=== PATIENT | female | born 1975 | race Caucasian/White ===

== ENCOUNTER → 2017-10-10 | Outpatient (CLI) | payer OTHER ==
[2017-10-10 14:30] LABS: CHOLESTEROL 140 mg/dL (<200); HDL CHOLESTEROL 35 mg/dl (40-60); LDL CHOLESTEROL 82 mg/dL (9-159); TRIGLYCERIDES 117 mg/dl (<150); VLDL CHOLESTEROL 23 mg/dL (6-40)
== END | disposition home or self-care (01) ==
LOC: LAB 13:07
DX: E78.5 Hyperlipidemia, unspecified (principal)

== ENCOUNTER 2018-01-28 20:22 | Emergency (ER) | payer OTHER ==
[~2018-01-28] VITALS: Ht 170.1 cm; Wt 117.9 kg
== END 2018-01-28 22:19 | disposition home or self-care (01) ==
LOC: ED 20:22
DX: M79.642 Pain in left hand (principal); Z88.6 Allergy status to analgesic agent; Z88.8 Allergy status to other drugs, medicaments and biological substances

== ENCOUNTER 2018-02-06 13:07 | Emergency (ER) | payer OTHER ==
[~2018-02-06] VITALS: Ht 165.1 cm; Wt 114.8 kg
[2018-02-06 13:50] LABS: BASO % 0.3 % (0.0-1.0); EOS # 0.1 10*3/uL (0.0-0.4); EOS % 0.8 % (1.0-4.0); HEMATOCRIT 29.5 % (37.0-47.0); HEMOGLOBIN 9.3 g/dl (12.0-16.0); LYMPH # 1.4 10*3/uL (1.3-4.4); LYMPH % 8.5 % (27.0-41.0); MEAN CELL VOLUME 82.9 fl (81.0-99.0); MEAN CORPUSCULAR HGB 26.1 pg (27.0-31.0); MEAN CORPUSCULAR HGB CONC 31.5 g/dl (33.0-37.0); MEAN PLATELET VOLUME 10.6 fl (9.6-12.3); MONO # 0.7 10*3/uL (0.1-1.0); MONO % 4.2 % (3.0-9.0); NEUT # 13.6 10*3/uL (2.3-7.9); NEUT % 85.6 % (47.0-73.0); PLATELET COUNT AUTOMATED 355 10*3/uL (130-400); RED BLOOD COUNT 3.56 10*6/uL (4.10-5.10); WHITE BLOOD COUNT 15.9 10*3/uL (4.8-10.8)
[2018-02-06 14:06] LABS: ALBUMIN 2.7 gm/dl (3.1-4.5); CREATININE 2.24 mg/dL (0.55-1.02); POTASSIUM 4.5 mmol/L (3.5-5.1); TOTAL PROTEIN 8.1 gm/dL (6.4-8.2)
[2018-02-06 14:49] LABS: BILIRUBIN NEGATIVE (NEGATIVE); BLOOD 3+ (NEGATIVE); CLARITY TURBID (CLEAR); COLOR YELLOW (YELLOW); GLUCOSE 3+ (NEGATIVE); KETONE NEGATIVE (NEGATIVE); LEUKO ESTERASE 2+ (NEGATIVE); NITRITE NEGATIVE (NEGATIVE); SPECIFIC GRAVITY <= 1.005 (1.005-1.030); UROBILINOGEN 0.2 E.U./dl (0.2-1.0)
[2018-02-06 14:57] LABS: WBC TNTC wbc/hpf (0-5)
[2018-02-06 17:43] LABS: CREATININE 1.87 mg/dL (0.55-1.02); POTASSIUM 3.8 mmol/L (3.5-5.1)
== END 2018-02-06 22:19 | disposition short-term general hospital (02) ==
LOC: ED 13:07
PROVIDERS: Emergency Medicine; Nurse Practitioner Family
DX: A41.9 Sepsis, unspecified organism (principal); R65.20 Severe sepsis without septic shock; E11.65 Type 2 diabetes mellitus with hyperglycemia; N39.0 Urinary tract infection, site not specified; N99.522 Malfunction of incontinent external stoma of urinary tract; Z88.8 Allergy status to other drugs, medicaments and biological substances

== ENCOUNTER 2018-02-16 19:54 | Inpatient (IN) | payer OTHER ==
[~2018-02-16] VITALS: Ht 165.1 cm; Wt 123.0 kg
--- NOTE | ~2018-02-16 | EKG ---
[place], [place] ELECTROCARDIOGRAM REPORT NAME: RONN MCKINNEY UNIT #: [id number] ROOM: 505 DOCTOR: BHUMIKA DRAFT REPORT BIRTHDATE: [birth year] [facility] Test Date: 2018-02-16 Test Time: 19:57:47 Pat Name: RONN MCKINNEY Department: Room: 505 Gender: F Director Surface Transportation: Thad Burnett : 1975 Requested By: NOLAN CHAPMAN Order Number: [id number] Reading MD: Dali Marsh MD Measurements Intervals [place] Rate: 104 P: 49 NC: 144 QRS: 5 QRSD: 93 T: 57 QT: 358 QTc: 471 Interpretive Statements Sinus tachycardia Lateral infarct, recent Probable anteriorl infarct, recent Electronically Signed On 02-20-2018 14:22:37 PST by Dali Marsh MD CM:EKGRPT:ELECTROCARDIOGRAM REPORT [id number] 1422 NOLAN GA DRAFT REPORT NOLAN CHAPMAN DO
--- NOTE | ~2018-02-16 | EKG ---
[place], [place] ELECTROCARDIOGRAM REPORT NAME: RONN MCKINNEY UNIT #: [id number] ROOM: 505 DOCTOR: BHUMIKA DRAFT REPORT BIRTHDATE: [birth year] [facility] Test Date: 2018-02-16 Test Time: 22:50:49 Pat Name: RONN MCKINNEY Department: Room: 505 Gender: F Heel Stiffener: Thad Burnett : 1975 Requested By: NOLAN CHAPMAN Order Number: [id number] Reading MD: Dali Marsh MD Measurements Intervals [place] Rate: 99 P: 29 ME: 148 QRS: -15 QRSD: 91 T: 37 QT: 364 QTc: 468 Interpretive Statements Sinus rhythm Borderline left axis deviation Anterolateral infarct, old Electronically Signed On 02-20-2018 14:24:02 PST by Dali Marsh MD CM:EKGRPT:ELECTROCARDIOGRAM REPORT [id number] 1424 NOLAN GA DRAFT REPORT NOLAN CHAPMAN DO
--- NOTE | ~2018-02-16 | CON ---
[place], [place] REPORT OF CONSULTATION NAME: RONN MCKINNEY UNIT #: [id number] ROOM: 505 DOCTOR: MERYL JAQUEZ MD BIRTHDATE: [birth year] DOS: 02/17/2018 REASON FOR CONSULTATION: Chest pain. HISTORY OF PRESENT ILLNESS: The patient is a 42-year-old woman with a history of type 2 diabetes mellitus on insulin, hyperlipidemia, and morbid obesity. She states that she did have a history of a myocardial infarction approximately 2 years ago. She was living in [place] at that time and was transferred to the [facility] in [place] where she did undergo catheterization and placement of a single stent. Those records are not yet available for review. She states that she has been doing well from a cardiac standpoint since then, but does have a large kidney stone. She was hospitalized for removal of the kidney stone at the [facility], but as they were prepping her she did decompensate. She was found to have bilateral lower extremity DVT per her report and was placed on apixaban. She does have a large obstructing kidney stone and therefore, she did undergo placement of a nephrostomy tube as a temporizing measure until she can undergo removal of the kidney stone. Her DVT was documented in early November 2017. The patient states that she has been absolutely faithful with her anticoagulation therapy. Four days ago, she began having intermittent precordial pains. These come and go without provocation. They last 5-10 minutes before they resolve. They are sharp. Occasionally, they get worse with a deep breath. These feel different from her myocardial infarction pain. She denies any diaphoresis, dyspnea, nausea, vomiting, diarrhea or bleeding. Since she has been in the hospital, her electrocardiograms have shown no acute changes and cardiac biomarkers have been negative. PAST MEDICAL HISTORY: Includes: 1. Type 2 diabetes mellitus, on insulin. 2. Morbid obesity. 3. Acute myocardial infarction 2015. Records pending. The patient reports catheterization and placement of a single stent. 4. Hyperlipidemia. 5. Presence of an obstructing kidney stone. Plans were made to remove the stone in November at the [facility], but were delayed because of DVT. 6. Lower extremity DVT diagnosed November 2017. The patient on apixaban. Records pending. MEDICATIONS: Prior to admission; apixaban 5 mg b.i.d., aspirin 81 mg daily, atorvastatin 40 mg daily, Wellbutrin 300 mg daily, cold medication b.i.d., docusate 100 mg b.i.d., hydroxyzine 50 mg t.i.d., Prevacid 30 mg daily, mirtazapine 45 mg daily, tramadol 50 mg q. 6 hours p.r.n. and Lantus insulin 44 units b.i.d. ALLERGIES: She lists allergies to VENLAFAXINE, IBUPROFEN, and METFORMIN. REVIEW OF SYSTEMS: The patient denies diplopia or loss of vision. She denies syncope. She denies fevers, chills, sweats or recent weight change, although she did have some chilling in the last few days. She denies nausea or vomiting. [place], [place] REPORT OF CONSULTATION NAME: RONN MCKINNEY UNIT #: [id number] ROOM: [facility] DOCTOR: MERYL JAQUEZ MD BIRTHDATE: [birth year] She has had the chest pains described above. She denies focal weakness. She denies change in bowel or bladder habits. She denies blood in her stools or urine. She does complain of swelling in her hands and feet. The remainder of the review of systems is negative except as noted above. FAMILY HISTORY: Negative for early coronary artery disease. SOCIAL HISTORY: The patient has a fiance. She does not smoke or consume alcohol, but her fiance does smoke. She rarely consumes marijuana and has not done so in several months. She denies any other illegal drugs. PHYSICAL EXAMINATION: GENERAL: The patient is an obese white female, who is awake, alert and oriented. She does not appear uncomfortable at this time. VITAL SIGNS: Pulse is 86 and regular, blood pressure is 118/58. She weighs 123 kg and has a body mass index of 45.1. HEENT: Normocephalic and atraumatic. Extraocular muscles are intact. Sclerae are clear. Pupils equal, round and react to light. The oral mucosa is moist. Tongue is midline. NECK: Supple. She has no jugular distention or hepatojugular reflux. Carotids are full. There are no bruits. She has no neck or supraclavicular masses and no thyromegaly. LUNGS: Respirations are unlabored. Her chest is clear to auscultation and percussion. She has no presacral edema or chest wall tenderness. CARDIOVASCULAR: Her heart has a regular rhythm. She has a soft S4 gallop, but no S3 or murmur. The PMI is not displaced. There is no precordial heave, lift or thrill. ABDOMEN: Obese, but otherwise benign, without masses or organomegaly, bruits or tenderness. EXTREMITIES: Showed no edema. Her hands do appear to be "puffy," but there is no pitting. LABORATORY DATA: I reviewed her electrocardiogram. It shows sinus rhythm with poor precordial R-wave progression consistent with a previous anterior wall myocardial infarction. No acute ST or T-wave changes are seen. Chest x-ray shows a normal cardiac silhouette without any evidence for failure or infiltrates. Hemoglobin is 8.7, white count 13,600, platelet count 370,000. Sodium 137, potassium 3.5, chloride 105, CO2 28, BUN 20, creatinine 0.97. Hemoglobin A1c 12. Serial troponins have been normal. Total cholesterol 116, triglyceride 196, LDL 41, HDL 36. TSH 2.6. IMPRESSIONS: 1. Atypical chest pain. Thus far, the patient shows no objective evidence to suggest an acute coronary syndrome. 2. History of myocardial infarction, catheterization and stent at the [facility] in [place] around 2016. Records pending. 3. Type 2 diabetes mellitus, on insulin. 4. Morbid obesity. 5. Hyperlipidemia. 6. Kidney stone. [place], [place] REPORT OF CONSULTATION [id number] UN[facility] #: [id number] ROOM: [facility] DOCTOR: MERYL JAQUEZ MD BIRTHDATE: [birth year] 7. Nephrostomy tube in place. 8. History of bilateral deep venous thrombosis diagnosed at the [facility]. The patient is on apixaban. PLAN: We will evaluate the patient further with an echocardiogram and pharmacologic stress test. Further recommendations will depend upon that and review of her records when available. I thank the hospitalist physicians for asking our advice regarding the patient's care. MERYL JAQUEZ MD CM:CONSTR:REPORT OF CONSULTATION 0926 02/17/18 1031 interface
--- NOTE | ~2018-02-16 | EKG ---
[place], [place] ELECTROCARDIOGRAM REPORT NAME: RONN MCKINNEY UNIT #: [id number] ROOM: 505 DOCTOR: BHUMIKA DRAFT REPORT BIRTHDATE: [birth year] [facility] Test Date: 2018-02-17 Test Time: 01:55:28 Pat Name: RONN MCKINNEY Department: Room: 505 Gender: F Headrig Sawyer: Thad Burnett : 1975 Requested By: NOLAN CHAPMAN Order Number: [id number] Reading MD: Dali Marsh MD Measurements Intervals [place] Rate: 93 P: 27 NV: 146 QRS: -15 QRSD: 95 T: 55 QT: 373 QTc: 464 Interpretive Statements Sinus rhythm Borderline left axis deviation Anteroseptal infarct, age indeterminate Lateral leads are also involved Baseline wander in lead(s) V4 Electronically Signed On 02-20-2018 14:24:08 PST by Dali Marsh MD CM:EKGRPT:ELECTROCARDIOGRAM REPORT [id number] 1424 NOLAN GA DRAFT REPORT NOLAN CHAPMAN DO
--- NOTE | ~2018-02-16 | PR ---
[place], [place] PROGRESS NOTE [id number] UNIT #: [id number] ROOM: 505 DOCTOR: MERYL JAQUEZ MD BIRTHDATE: [birth year] DOS: 02/18/2018 CARDIOLOGY PROGRESS NOTE SUBJECTIVE: The patient was seen today 02/18/2018 in the Cardiology Department just prior to her stress test. The patient states that she has not had any further chest pain overnight and feels well. Unfortunately, we have not yet received any of the records from her previous hospitalizations, angioplasty, etc. PHYSICAL EXAMINATION: VITAL SIGNS: Today, her pulse is 90 and regular, blood pressure is 114/72. She weighs 123 kg and has a body mass index of 45.1. HEENT: Normocephalic and atraumatic. Extraocular muscles are intact. Sclerae are clear. Pupils are equal, round and react to light. The oral mucosa is moist. Tongue is midline. NECK: Supple. She has no jugular distention. Carotids are full. LUNGS: Respirations are unlabored. Chest is clear to auscultation and percussion. She has no presacral edema or chest wall tenderness. HEART: Has a regular rhythm. She has a fourth heart sound, but no third heart sound. The PMI is not displaced. ABDOMEN: Soft and normally active without masses, organomegaly or bruits. EXTREMITIES: Showed no edema. Peripheral pulses are easily palpated bilaterally. The patient's echocardiogram done yesterday showed normal left ventricular size with hypokinesis of the distal anterior wall, septum, inferior wall and apex. Overall, left ventricular systolic function is mildly impaired with an ejection fraction between 50% and 55%. She has stage 1 diastolic relaxation abnormalities. No significant valve abnormalities were present. IMPRESSION: 1. Atypical chest pain. Thus far, the patient shows no objective evidence of an acute coronary event. 2. History of myocardial infarction, catheterization and stent at the [facility] in [place] around 2015, records are pending. 3. Type 2 diabetes mellitus, on insulin. 4. Morbid obesity. 5. Hyperlipidemia. 6. Obstructive kidney stone with nephrostomy in place. 7. History of bilateral deep venous thromboses diagnosed at the [facility]. The patient is currently on apixaban. PLAN: We will proceed with a pharmacologic stress test today. Further recommendations will depend upon the results of the stress test and review of old records as they become available. I thank the hospitalist physicians for asking our advice regarding her care. [place], [place] PROGRESS NOTE NAME: RONN MCKINNEY UNIT #: [id number] ROOM: [facility] DOCTOR: MERYL JAQUEZ MD BIRTHDATE: [birth year] MERYL JAQUEZ MD CM:PNTRANS 09 MERYL JAQUEZ MD 02/18/182310 interface
[2018-02-16 20:00] VITALS: BP 164/78
[2018-02-16 20:21] LABS: BASO # 0.1 10*3/uL (0.0-0.1); BASO % 0.5 % (0.0-1.0); EOS # 0.3 10*3/uL (0.0-0.4); HEMATOCRIT 30.1 % (37.0-47.0); HEMOGLOBIN 9.2 g/dl (12.0-16.0); LYMPH # 2.2 10*3/uL (1.3-4.4); LYMPH % 16.1 % (27.0-41.0); MEAN CELL VOLUME 82.9 fl (81.0-99.0); MEAN CORPUSCULAR HGB 25.3 pg (27.0-31.0); MEAN CORPUSCULAR HGB CONC 30.6 g/dl (33.0-37.0); MEAN PLATELET VOLUME 9.5 fl (9.6-12.3); MONO # 0.5 10*3/uL (0.1-1.0); MONO % 3.5 % (3.0-9.0); NEUT # 10.3 10*3/uL (2.3-7.9); NEUT % 76.9 % (47.0-73.0); PLATELET COUNT AUTOMATED 395 10*3/uL (130-400); RED BLOOD COUNT 3.63 10*6/uL (4.10-5.10); RED CELL DISTRI WIDTH 15.9 % (0-14.5); WHITE BLOOD COUNT 13.3 10*3/uL (4.8-10.8)
[2018-02-16 20:31] LABS: ACT PARTIAL THROMBO TIME 22.9 SECONDS (20.8-31.5); INTERNATIONAL NORM RATIO 0.9 (2.0-3.5)
[2018-02-16 20:37] LABS: ALBUMIN 2.5 gm/dl (3.1-4.5); ALKALINE PHOSPHATASE 201 U/L (45-117); BUN 23 mg/dl (7-24); CHLORIDE 104 mmol/L (98-107); CREATININE 1.11 mg/dL (0.55-1.02); POTASSIUM 3.7 mmol/L (3.5-5.1); SGOT/AST 17 IU/L (3-35); SGPT/ALT 19 U/L (12-78); SODIUM 137 mmol/L (136-145); TOTAL PROTEIN 8.2 gm/dL (6.4-8.2)
[2018-02-16 20:43] LABS: TROPONIN I < 0.015 ng/ml (<0.045)
[2018-02-16 20:51] VITALS: BP 129/73
[2018-02-16 21:30] VITALS: BP 125/81
[2018-02-16 23:10] VITALS: BP 134/80
[2018-02-16] MEDS ORDERED: HYDROXYZINE HCL50 MG PO (23:48)
[2018-02-16] MEDS ORDERED: PREVACID30 M2 PO (23:49)
[2018-02-16] MEDS ORDERED: RA COLD RLF MU1 EACH PO (23:49)
[2018-02-16] MEDS ORDERED: ELIQUIS5 M1 PO (23:50)
[2018-02-16] MEDS ORDERED: WELLBUTRIN XL300 MG PO (23:51)
[2018-02-16] MEDS ORDERED: ULTRAM50 MG PO (23:51)
[2018-02-16] MEDS ORDERED: ASPIRIN81 MG PO (23:52)
[2018-02-16] MEDS ORDERED: REMERON SOLTAB45 MG PO (23:53)
[2018-02-16] MEDS ORDERED: DOK100 M1 PO (23:53)
[2018-02-16] MEDS ORDERED: LIPITOR40 MG PO (23:54)
[2018-02-17] VITALS: BP 134/80
[2018-02-17] MEDS ORDERED: LANTUS SOL100 UNIT/1 SQ (00:08)
[2018-02-17 02:15] LABS: BASO % 0.2 % (0.0-1.0); EOS # 0.3 10*3/uL (0.0-0.4); HEMATOCRIT 28.1 % (37.0-47.0); HEMOGLOBIN 8.7 g/dl (12.0-16.0); LYMPH # 2.9 10*3/uL (1.3-4.4); LYMPH % 21.1 % (27.0-41.0); MEAN CELL VOLUME 82.9 fl (81.0-99.0); MEAN CORPUSCULAR HGB 25.7 pg (27.0-31.0); MONO # 0.5 10*3/uL (0.1-1.0); MONO % 3.6 % (3.0-9.0); NEUT # 9.8 10*3/uL (2.3-7.9); NEUT % 72.5 % (47.0-73.0); PLATELET COUNT AUTOMATED 370 10*3/uL (130-400); RED BLOOD COUNT 3.39 10*6/uL (4.10-5.10); RED CELL DISTRI WIDTH 16.2 % (0-14.5); WHITE BLOOD COUNT 13.6 10*3/uL (4.8-10.8)
[2018-02-17 02:27] LABS: BUN 20 mg/dl (7-24); CHLORIDE 105 mmol/L (98-107); CREATININE 0.97 mg/dL (0.55-1.02); POTASSIUM 3.5 mmol/L (3.5-5.1); SODIUM 137 mmol/L (136-145)
[2018-02-17 02:32] LABS: CHOLESTEROL 116 mg/dL (<200); FREE T4 1.19 ng/dl (0.76-1.46); HDL CHOLESTEROL 36 mg/dl (40-60); LDL CHOLESTEROL 41 mg/dL (9-159); PHOSPHOROUS 2.8 mg/dL (2.5-4.9); TRIGLYCERIDES 196 mg/dl (<150); VLDL CHOLESTEROL 39 mg/dL (6-40)
[2018-02-17 03:26] LABS: VITAMIN D, 25-HYDROXY 17.9 ng/mL (30-100)
[2018-02-17 08:00] VITALS: BP 109/65; BP 118/58
[2018-02-17 12:00] VITALS: BP 125/81
[2018-02-17 16:00] VITALS: BP 136/74
[2018-02-17 20:00] VITALS: BP 101/64
[2018-02-18] VITALS: BP 114/72
[2018-02-18 16:00] VITALS: BP 123/67
[2018-02-18] MEDS ORDERED: VITAMIN D5000 UNI1 PO (16:24)
[2018-02-19] MEDS ORDERED: PERCOCET 5-3251 EACH PO (16:41)
== END 2018-02-18 17:43 | disposition home health service (06) | DRG 206 ==
LOC: ED 19:54 → 5E 21:37 → EDHOLD 21:37 → 5E 22:01
PROVIDERS: Emergency Medicine; Student in an Organized Health Care Education/Training Program
DX: M94.0 Chondrocostal junction syndrome [Tietze] (principal); R65.10 Systemic inflammatory response syndrome (SIRS) of non-infectious origin without acute organ dysfunction; Z68.42 Body mass index [BMI] 45.0-49.9, adult; K21.9 Gastro-esophageal reflux disease without esophagitis; N99.522 Malfunction of incontinent external stoma of urinary tract; E11.65 Type 2 diabetes mellitus with hyperglycemia; E66.01 Morbid (severe) obesity due to excess calories; K59.00 Constipation, unspecified; N20.0 Calculus of kidney; E11.69 Type 2 diabetes mellitus with other specified complication; E78.2 Mixed hyperlipidemia; I25.2 Old myocardial infarction; Z87.440 Personal history of urinary (tract) infections; Z87.442 Personal history of urinary calculi; Z86.718 Personal history of other venous thrombosis and embolism; Z95.5 Presence of coronary angioplasty implant and graft; Z90.49 Acquired absence of other specified parts of digestive tract; Z82.49 Family history of ischemic heart disease and other diseases of the circulatory system; Z88.8 Allergy status to other drugs, medicaments and biological substances; Z88.6 Allergy status to analgesic agent; Z79.4 Long term (current) use of insulin; Z79.899 Other long term (current) drug therapy; Z79.82 Long term (current) use of aspirin; Z79.01 Long term (current) use of anticoagulants

== ENCOUNTER 2018-02-19 14:25 | Emergency (ER) | payer OTHER ==
[~2018-02-19] VITALS: Ht 165.1 cm; Wt 122.9 kg
[~2018-02-19 14:25] MED LIST: ASPIRIN81 MG PO; DOK100 M1 PO; ELIQUIS5 M1 PO; HYDROXYZINE HCL50 MG PO; LANTUS SOL100 UNIT/1 SQ; LIPITOR40 MG PO; PREVACID30 M2 PO; RA COLD RLF MU1 EACH PO; REMERON SOLTAB45 MG PO; ULTRAM50 MG PO; VITAMIN D5000 UNI1 PO; WELLBUTRIN XL300 MG PO
[2018-02-19 16:05] LABS: BASO # 0.1 10*3/uL (0.0-0.1); BASO % 0.5 % (0.0-1.0); EOS # 0.3 10*3/uL (0.0-0.4); EOS % 2.3 % (1.0-4.0); HEMATOCRIT 31.4 % (37.0-47.0); HEMOGLOBIN 9.6 g/dl (12.0-16.0); LYMPH # 2.2 10*3/uL (1.3-4.4); LYMPH % 17.5 % (27.0-41.0); MEAN CELL VOLUME 83.5 fl (81.0-99.0); MEAN CORPUSCULAR HGB 25.5 pg (27.0-31.0); MEAN CORPUSCULAR HGB CONC 30.6 g/dl (33.0-37.0); MEAN PLATELET VOLUME 9.2 fl (9.6-12.3); MONO # 0.4 10*3/uL (0.1-1.0); MONO % 3.6 % (3.0-9.0); NEUT # 9.4 10*3/uL (2.3-7.9); NEUT % 75.8 % (47.0-73.0); PLATELET COUNT AUTOMATED 393 10*3/uL (130-400); RED BLOOD COUNT 3.76 10*6/uL (4.10-5.10); RED CELL DISTRI WIDTH 16.6 % (0-14.5); WHITE BLOOD COUNT 12.4 10*3/uL (4.8-10.8)
[2018-02-19 16:17] LABS: CREATININE 1.23 mg/dL (0.55-1.02); POTASSIUM 4.1 mmol/L (3.5-5.1)
[2018-02-19] MEDS ORDERED: PERCOCET 5-3251 EACH PO (16:41)
== END 2018-02-19 16:48 | disposition home or self-care (01) ==
LOC: ED 14:25
PROVIDERS: Emergency Medicine
DX: R10.9 Unspecified abdominal pain (principal); E11.9 Type 2 diabetes mellitus without complications; E66.01 Morbid (severe) obesity due to excess calories; Z88.8 Allergy status to other drugs, medicaments and biological substances; Z88.5 Allergy status to narcotic agent; Z79.82 Long term (current) use of aspirin; Z79.4 Long term (current) use of insulin; Z79.899 Other long term (current) drug therapy; Z86.718 Personal history of other venous thrombosis and embolism; Z90.49 Acquired absence of other specified parts of digestive tract

== ENCOUNTER 2018-11-11 22:40 | Emergency (ER) | payer OTHER ==
[~2018-11-11] VITALS: Ht 167.6 cm; Wt 122.5 kg
[~2018-11-11 22:40] MED LIST changes: +PERCOCET 5-3251 EACH PO
== END 2018-11-12 01:21 | disposition home or self-care (01) ==
LOC: ED 22:40
DX: N99.522 Malfunction of incontinent external stoma of urinary tract (principal); E11.69 Type 2 diabetes mellitus with other specified complication; E78.2 Mixed hyperlipidemia; E66.01 Morbid (severe) obesity due to excess calories; I25.2 Old myocardial infarction; Z87.442 Personal history of urinary calculi; Z90.49 Acquired absence of other specified parts of digestive tract; Z88.1 Allergy status to other antibiotic agents; Z88.8 Allergy status to other drugs, medicaments and biological substances; Z79.899 Other long term (current) drug therapy; Z79.82 Long term (current) use of aspirin; Z79.4 Long term (current) use of insulin; Y83.8 Other surgical procedures as the cause of abnormal reaction of the patient, or of later complication, without mention of misadventure at the time of the procedure; Y82.8 Other medical devices associated with adverse incidents

== ENCOUNTER 2018-12-19 21:36 | Inpatient (IN) | payer OTHER ==
[~2018-12-19] VITALS: Ht 165.1 cm; Wt 121.7 kg
[2018-12-19 21:40] VITALS: BP 129/75
[2018-12-19 22:01] LABS: BASO # 0.1 10*3/uL (0.0-0.1); BASO % 0.5 % (0.0-1.0); EOS # 0.2 10*3/uL (0.0-0.4); EOS % 1.4 % (1.0-4.0); HEMATOCRIT 34.2 % (37.0-47.0); HEMOGLOBIN 10.5 g/dl (12.0-16.0); LYMPH # 2.1 10*3/uL (1.3-4.4); LYMPH % 15.6 % (27.0-41.0); MEAN CELL VOLUME 80.1 fl (81.0-99.0); MEAN CORPUSCULAR HGB 24.6 pg (27.0-31.0); MEAN CORPUSCULAR HGB CONC 30.7 g/dl (33.0-37.0); MEAN PLATELET VOLUME 10.5 fl (9.6-12.3); MONO # 0.6 10*3/uL (0.1-1.0); MONO % 4.7 % (3.0-9.0); NEUT # 10.3 10*3/uL (2.3-7.9); NEUT % 77.2 % (47.0-73.0); PLATELET COUNT AUTOMATED 277 10*3/uL (130-400); RED BLOOD COUNT 4.27 10*6/uL (4.10-5.10); RED CELL DISTRI WIDTH 17.9 % (0-14.5); WHITE BLOOD COUNT 13.3 10*3/uL (4.8-10.8)
[2018-12-19 22:13] LABS: ACT PARTIAL THROMBO TIME 24.7 SECONDS (20.0-32.1); INTERNATIONAL NORM RATIO 0.9 (2.0-3.5)
[2018-12-19 22:19] LABS: ALBUMIN 3.1 gm/dl (3.1-4.5); CREATININE 1.37 mg/dL (0.55-1.02); POTASSIUM 3.3 mmol/L (3.5-5.1); TOTAL PROTEIN 7.5 gm/dL (6.4-8.2)
[2018-12-19 22:23] LABS: TROPONIN I 0.191 ng/ml (<0.045)
[2018-12-19 22:32] VITALS: BP 138/66
--- NOTE | 2018-12-19 23:24 | NUR ---
REPORT RECEIVED FROM JOSE MIGUEL MICHAEL
--- NOTE | 2018-12-20 00:52 | NUR ---
TROP 0.185, DR WHEAT AWARE
[2018-12-20 01:25] VITALS: BP 109/84
--- NOTE | 2018-12-20 01:25 | NUR ---
A 43, admitted to 4E, under the services of VALERIA Qureshi DO with a diagnosis of CHEST PAIN WITH MODERATE RISK OF ACUTE CORONARY SYNDROME. Chief complaint is SHORTNESS OF BREATH. Patient arrived via bed from ER. Monitor applied. Initial assessment completed. Vital signs taken and recorded. VALERIA QURESHI DO notified of admission to the unit. Orders received. See assessment for past medical history, medications and allergies. Patient and/or family oriented to unit. [address] visitation policy reviewed. Clothing/patient valuable form completed. WOUND TO RT GROIN. NOT VISUALIZED. PT REFUSES PICTURES OF NOW. JAMA TORRES
--- NOTE | 2018-12-20 01:40 | NUR ---
PICTURE TAKEN OF R GROIN FOLD DRESSING. PT REPORTS SHE SEES [facility] AND GETS VISITING NURSES. PT HAS UNSTAGEABLE WOUND FROM NECROTIZING FASCITIS PER DR COULTER.
[2018-12-20 02:00] VITALS: BP 109/84
--- NOTE | 2018-12-20 02:46 | NUR ---
SPOKE WITH DR. EDMONDSON ANSWERING SERVICE FOR NEW PT CONSULT. AWAITING CALL BACK.
--- NOTE | 2018-12-20 03:30 | NUR ---
Hep Lock discontinued to right hand. Painful & unable to flush. Site asymptomatic. Pressure applied. Sterile dressing applied. JAMA TORRES
--- NOTE | 2018-12-20 03:35 | NUR ---
IV started left hand with #22 protective cath after 1 attempts. Site prepped with Chloroprep. Sterile dressing applied. Patient tolerated procedure well. IV infusing at 999 cc/hr. JAMA TORRES
--- NOTE | 2018-12-20 03:40 | NUR ---
PT REFUSES WOUND PICTURE OF RIGHT GROIN AT THIS TIME. STATES SHE IS "TOO TIRED RIGHT NOW AND WOULD LIKE TO GET SOME REST".
[2018-12-20 03:53] LABS: BASO # 0.1 10*3/uL (0.0-0.1); BASO % 0.4 % (0.0-1.0); EOS # 0.2 10*3/uL (0.0-0.4); EOS % 1.7 % (1.0-4.0); HEMOGLOBIN 9.8 g/dl (12.0-16.0); LYMPH # 2.6 10*3/uL (1.3-4.4); MEAN CELL VOLUME 81.4 fl (81.0-99.0); MEAN CORPUSCULAR HGB 24.9 pg (27.0-31.0); MEAN CORPUSCULAR HGB CONC 30.6 g/dl (33.0-37.0); MEAN PLATELET VOLUME 11.1 fl (9.6-12.3); MONO # 0.7 10*3/uL (0.1-1.0); MONO % 5.3 % (3.0-9.0); NEUT # 10.1 10*3/uL (2.3-7.9); NEUT % 73.3 % (47.0-73.0); PLATELET COUNT AUTOMATED 249 10*3/uL (130-400); RED BLOOD COUNT 3.93 10*6/uL (4.10-5.10); RED CELL DISTRI WIDTH 17.9 % (0-14.5); WHITE BLOOD COUNT 13.7 10*3/uL (4.8-10.8)
[2018-12-20 03:54] LABS: CREATININE 1.29 mg/dL (0.55-1.02); PHOSPHOROUS 3.1 mg/dL (2.5-4.9); POTASSIUM 3.4 mmol/L (3.5-5.1)
[2018-12-20 03:55] LABS: FREE T4 1.55 ng/dl (0.76-1.46)
[2018-12-20 04:00] LABS: THYROID STIM HORMONE (HS) 2.85 uIU/ml (0.358-4.75)
--- NOTE | 2018-12-20 04:00 | NUR ---
DR MCKNIGHT NOTIFIED OF CRITICAL TROPONIN 0.168.
--- NOTE | 2018-12-20 04:13 | NUR ---
SPOKE WITH DR PARRY REGARDING NEW PATIENT CONSULT. WANTS PT TO RECEIVE 1 MG/KG OF LOVENOX Q12H. STATES HE WILL SEE THE PATIENT THIS MORNING.
--- NOTE | 2018-12-20 05:00 | NUR ---
IV started left antecubital with #20 angiocath after 2 attempts. The IV site was prepped with Chloraprep. Sterile dressing applied. Patient tolerated precedure well. Procedure performed according to [facility] policy & procedure. JAMA TORRES
--- NOTE | 2018-12-20 06:16 | NUR ---
DR. HENRY NOTIFIED OF CRITICAL CT CHEST RESULTS.
--- NOTE | 2018-12-20 06:26 | NUR ---
ATTEMPTED TO CALL NEW PATIENT CONSULT TO DR LEWIS. NO ANSWER, MESSAGE LEFT. AWAITING CALL BACK.
[2018-12-20 06:31] LABS: VITAMIN D, 25-HYDROXY 14.3 ng/mL (30-100)
--- NOTE | 2018-12-20 07:10 | NUR ---
DR LEWIS ORDERED FOR PT TO BE TRANSFERRED TO ICU. T.O. TAKEN FOR PRO-BNP, CYCLED TROPONINS, STAT ECHO, AND STAT VENOUS ULTRASOUND OF BILATERAL LOWER EXTREMITIES. DR. LEWIS STATED IF PT COULDN'T GET THE VENOUS ULTRASOUND TODAY THAT HE WANTS THE PATIENT TO BE TRANSFERRED OUT. AWAITING BED IN ICU.
--- NOTE | 2018-12-20 07:20 | NUR ---
DR. PIERCE NOTIFIED OF PTS CONDITION & DR. LEWIS'S ORDER TO TRANSFER PT TO ICU.
--- NOTE | 2018-12-20 07:55 | NUR ---
PT TRANSFERRED TO ICU, REPORT GIVEN.
--- NOTE | 2018-12-20 07:55 | NUR ---
RECIEVED IN ICCU FROM [facility] FOR POSITIVE CTA RESULTS, PT ALERT AND ORIENTED, CALM, IN NO RESP DISTRESS, LUNGS DIMINISHED, IV SITES X 2 WITH NS INFUSING, PT HAS R NEPHROSTOMY FROM HOME PT UPDATED HER FAMILY ARRANGEMENTS MADE FOR IMMEDIATE TRANSFER OUT
[2018-12-20 08:00] VITALS: BP 133/79
[2018-12-20 08:16] LABS: TROPONIN I 0.13 ng/ml (<0.045)
--- NOTE | 2018-12-20 08:26 | NUR ---
DR PIERCE AWARE OF TROP
--- NOTE | 2018-12-20 09:53 | NUR ---
IV ATIVAN FOR ANXIETY HAS BEEN SOMEWHAT EFFECTIVE, PT CONSTANTLY ON PHONE AND REFUSING TO REST, VS ON LOBBY DUE TO HIS AGITATION OF PT ALSO NOTED BY DR PIERCE
--- NOTE | 2018-12-20 11:03 | NUR ---
STILL AWAITING BED FROM [facility]. [facility] CALLED FOR POSSIBLE TRANSFER
[2018-12-20 12:00] VITALS: BP 96/59
--- NOTE | 2018-12-20 12:39 | NUR ---
attempting transfers to [facility] and [facility] still does not have a bed pre auth needed for [facility], supervisor production department is working on that resident updated pt resting qiuietly, chest pain free, dr ortiz in to see pt home meds have been verified, pt is very noncompliant with meds, propranolol, synthroid, plavix, have not been refilled and pt has not had for weeks pt also only taking amoxicillin daily instead of bid "to make them last longer" pt continues to refuse drsg change to right groin area area caused by a "pimple" pt also denies the need to urinate, thus no ua/uc collected boyfriend remains at bedside, with a bag of his own pills that he is taking
--- NOTE | 2018-12-20 13:05 | NUR ---
Spoke to Viridiana Luna at [facility] at [phone] regarding needing prior authorization to transfer patient to a higher level of care. Viridiana states they do not give prior authorizations to transfer to a higher level of care. The accepting facility would need to call and start the authorization. Nursing supervisor cell operation and inpatient director notified.
--- NOTE | 2018-12-20 13:37 | NUR ---
PER NURSING BOTTOM LINER, [facility] WILL NOT GIVENA PRE AUTH FOR [facility], DR PIERCE UPDATED
--- NOTE | 2018-12-20 14:03 | NUR ---
ANNMARIE CALLED BY DR STAN GARY TRANSFER, AND THEY HAVE NO BEDS [facility] CALLED AND THEY ARE STILL TRYING TO GET A BED [facility] CALLED AND THEY MAY HAVE A DISCHARGE LATER AT MAIN PT UPDATED ON THE DIFFICULITY OF FINDING HER A BED AND SHE IS UNDERSTANDING OF THAT
--- NOTE | 2018-12-20 15:30 | NUR ---
TRO TRENDING DOWN, PT REMAINS CHEST PAIN FREE
[2018-12-20 16:00] VITALS: BP 104/71
--- NOTE | 2018-12-20 16:30 | NUR ---
NOTIFIED OF PT C/O OF ANXIETY PER SHE WILL BE UP TO THE UNIT TO SEE THE PATIENT
--- NOTE | 2018-12-20 17:13 | NUR ---
ACCEPTED AT [facility] PER DR PIERCE AWAITING BED
--- NOTE | 2018-12-20 18:01 | NUR ---
UP TO BSC FOR LARGE BM, HR TO 140'S -ST, WITH MODERATE SOB, BUT PT STILL ABLE TO CONVERSE ON CELL PHONE, HR RESOLVED WITH GETTING BACK TO BED TO REST, POX MAINTAINED >94 ON 2L REPORT HAS BEEN GIVEN TO MARTHA AT [facility]WAITING [facility] TO TRANSPORT PT
--- NOTE | 2018-12-20 19:34 | NUR ---
Shift chart check completed.24 HR chart check completed.
[2018-12-20 19:41] VITALS: BP 118/76
--- NOTE | 2018-12-20 19:41 | NUR ---
AMBULANCE HERE TO TAKE PT TO [facility].
--- NOTE | 2018-12-20 19:45 | NUR ---
DISCHARGED WITH HER PACKET, ALL HER BELONGINGS VIA [facility] IN STABLE CONDITION.
== END 2018-12-20 19:45 | disposition short-term general hospital (02) | DRG 176 ==
LOC: ED 21:36 → EDHOLD 12-20 00:48 → 4E 12-20 01:03 → ICCU 12-20 08:04
PROVIDERS: Emergency Medicine Emergency Medical Services; Internal Medicine; Internal Medicine Critical Care Medicine; ADMIT Internal Medicine
DX: I26.09 Other pulmonary embolism with acute cor pulmonale (principal); R65.10 Systemic inflammatory response syndrome (SIRS) of non-infectious origin without acute organ dysfunction; E44.0 Moderate protein-calorie malnutrition; Z68.41 Body mass index [BMI] 40.0-44.9, adult; J45.909 Unspecified asthma, uncomplicated; D72.829 Elevated white blood cell count, unspecified; E87.6 Hypokalemia; E87.8 Other disorders of electrolyte and fluid balance, not elsewhere classified; N18.3 Chronic kidney disease, stage 3 (moderate); E11.22 Type 2 diabetes mellitus with diabetic chronic kidney disease; E11.69 Type 2 diabetes mellitus with other specified complication; E78.2 Mixed hyperlipidemia; I25.10 Atherosclerotic heart disease of native coronary artery without angina pectoris; R79.89 Other specified abnormal findings of blood chemistry; D50.9 Iron deficiency anemia, unspecified; E66.01 Morbid (severe) obesity due to excess calories; E11.65 Type 2 diabetes mellitus with hyperglycemia; Z79.4 Long term (current) use of insulin; Z87.891 Personal history of nicotine dependence; Z95.5 Presence of coronary angioplasty implant and graft; I25.2 Old myocardial infarction; Z88.6 Allergy status to analgesic agent; Z88.8 Allergy status to other drugs, medicaments and biological substances; Z86.718 Personal history of other venous thrombosis and embolism; Z87.440 Personal history of urinary (tract) infections; Z87.442 Personal history of urinary calculi; Z90.49 Acquired absence of other specified parts of digestive tract; Z82.49 Family history of ischemic heart disease and other diseases of the circulatory system; Z79.82 Long term (current) use of aspirin; Z79.899 Other long term (current) drug therapy

== ENCOUNTER → 2020-06-20 | Outpatient (CLI) | payer OTHER ==
[2020-06-20 10:51] LABS: BASO % 0.3 % (0.0-1.0); EOS # 0.3 10*3/uL (0.0-0.4); EOS % 2.1 % (1.0-4.0); LYMPH % 15.9 % (27.0-41.0); MEAN CELL VOLUME 87.2 fl (81.0-99.0); MEAN CORPUSCULAR HGB 26.7 pg (27.0-31.0); MEAN CORPUSCULAR HGB CONC 30.7 g/dl (33.0-37.0); MEAN PLATELET VOLUME 11.7 fl (9.6-12.3); MONO # 0.5 10*3/uL (0.1-1.0); MONO % 3.8 % (3.0-9.0); NEUT # 9.6 10*3/uL (2.3-7.9); NEUT % 77.3 % (47.0-73.0); PLATELET COUNT AUTOMATED 225 10*3/uL (130-400); RED BLOOD COUNT 5.16 10*6/uL (4.10-5.10); RED CELL DISTRI WIDTH 17.7 % (0-14.5); WHITE BLOOD COUNT 12.4 10*3/uL (4.8-10.8)
[2020-06-20 11:14] LABS: ALBUMIN 3.1 gm/dl (3.1-4.5); ALKALINE PHOSPHATASE 120 U/L (45-117); BUN 18 mg/dl (7-24); CHLORIDE 107 mmol/L (98-107); CHOLESTEROL 152 mg/dL (<200); CREATININE 1.12 mg/dL (0.55-1.02); FREE T4 1.03 ng/dl (0.76-1.46); HDL CHOLESTEROL 38 mg/dl (40-60); LDL CHOLESTEROL 69 mg/dL (9-159); POTASSIUM 4.8 mmol/L (3.5-5.1); SGOT/AST 13 IU/L (3-35); SGPT/ALT 14 U/L (12-78); SODIUM 139 mmol/L (136-145); TOTAL PROTEIN 7.4 gm/dL (6.4-8.2); TRIGLYCERIDES 224 mg/dl (<150); VLDL CHOLESTEROL 45 mg/dL (6-40)
[2020-06-20 11:18] LABS: THYROID STIM HORMONE (HS) 0.442 uIU/ml (0.358-4.75)
[2020-06-20 11:40] LABS: VITAMIN D, 25-HYDROXY 25.4 ng/mL (30-100)
== END | disposition home or self-care (01) ==
LOC: LAB 10:18
PROVIDERS: ATTEND Internal Medicine
DX: Z00.00 Encounter for general adult medical examination without abnormal findings (principal); E78.2 Mixed hyperlipidemia; I10 Essential (primary) hypertension; E03.9 Hypothyroidism, unspecified; E11.9 Type 2 diabetes mellitus without complications; E55.9 Vitamin D deficiency, unspecified

== ENCOUNTER 2020-09-17 11:35 | Inpatient (IN) | payer OTHER ==
[2020-09-17 11:49] VITALS: BP 151/93
[2020-09-17 13:00] VITALS: BP 138/86
[2020-09-17 13:10] LABS: HEMATOCRIT 38.7 % (37.0-47.0); MEAN CELL VOLUME 86.4 fl (81.0-99.0); MEAN CORPUSCULAR HGB 27.9 pg (27.0-31.0); MEAN CORPUSCULAR HGB CONC 32.3 g/dl (33.0-37.0); MEAN PLATELET VOLUME 11.8 fl (9.6-12.3); PLATELET COUNT AUTOMATED 162 10*3/uL (130-400); RED BLOOD COUNT 4.48 10*6/uL (4.10-5.10); RED CELL DISTRI WIDTH 15.7 % (0-14.5); WHITE BLOOD COUNT 17.3 10*3/uL (4.8-10.8)
[2020-09-17 13:26] LABS: ALBUMIN 2.5 gm/dl (3.1-4.5); ALKALINE PHOSPHATASE 153 U/L (45-117); BUN 16 mg/dl (7-24); CHLORIDE 98 mmol/L (98-107); CREATININE 1.26 mg/dL (0.55-1.02); LIPASE 21 U/L (73-393); POTASSIUM 3.6 mmol/L (3.5-5.1); SGOT/AST 63 IU/L (3-35); SGPT/ALT 41 U/L (12-78); SODIUM 131 mmol/L (136-145); TOTAL PROTEIN 7.1 gm/dL (6.4-8.2)
[2020-09-17 13:27] LABS: BURR CELLS FEW; PLATELET SUFFICIENCY NORMAL (NORMAL); TOTAL CELLS COUNTED 100 #CELLS
[2020-09-17 13:34] LABS: TROPONIN I < 0.015 ng/ml (<0.045)
[2020-09-17 14:11] LABS: BILIRUBIN Negative (Negative); BLOOD 1+ (Negative); CLARITY Cloudy (Clear); COLOR Yellow (Yellow); GLUCOSE 3+ (Negative); KETONE 2+ (Negative); LEUKO ESTERASE Negative (Negative); NITRITE Positive (Negative); SPECIFIC GRAVITY >= 1.030 (1.001-1.030); UROBILINOGEN 0.2 E.U./dl (0.0-1.0)
[2020-09-17 14:20] LABS: WBC 31-40 wbc/hpf (0-5); YEAST TRACE
[2020-09-17 15:10] VITALS: BP 148/80
[2020-09-17] MEDS ORDERED: PROZAC40 M1 PO (16:51)
[2020-09-17 17:45] VITALS: BP 141/82
[2020-09-17 20:08] VITALS: BP 135/83
[2020-09-17 22:43] VITALS: BP 137/81
[2020-09-18 03:08] VITALS: BP 154/90
[2020-09-18 05:20] LABS: ALBUMIN 2.3 gm/dl (3.1-4.5); ALKALINE PHOSPHATASE 161 U/L (45-117); BUN 15 mg/dl (7-24); CHLORIDE 104 mmol/L (98-107); CHOLESTEROL 156 mg/dL (<200); CREATININE 1.03 mg/dL (0.55-1.02); POTASSIUM 3.5 mmol/L (3.5-5.1); SGOT/AST 71 IU/L (3-35); SGPT/ALT 41 U/L (12-78); SODIUM 136 mmol/L (136-145); TOTAL PROTEIN 6.9 gm/dL (6.4-8.2); TRIGLYCERIDES 174 mg/dl (<150)
[2020-09-18 05:21] LABS: LDL CHOLESTEROL 87 mg/dL (9-159)
[2020-09-18 06:11] LABS: BASO % 0.2 % (0.0-1.0); EOS % 0.2 % (1.0-4.0); HEMATOCRIT 39.2 % (37.0-47.0); LYMPH # 1.1 10*3/uL (1.3-4.4); LYMPH % 6.7 % (27.0-41.0); MEAN CELL VOLUME 88.5 fl (81.0-99.0); MEAN CORPUSCULAR HGB 27.5 pg (27.0-31.0); MEAN CORPUSCULAR HGB CONC 31.1 g/dl (33.0-37.0); MONO % 6.1 % (3.0-9.0); NEUT # 13.8 10*3/uL (2.3-7.9); PLATELET COUNT AUTOMATED 170 10*3/uL (130-400); RED BLOOD COUNT 4.43 10*6/uL (4.10-5.10); RED CELL DISTRI WIDTH 15.8 % (0-14.5); WHITE BLOOD COUNT 16.1 10*3/uL (4.8-10.8)
[2020-09-18 07:49] LABS: VITAMIN D, 25-HYDROXY 16.3 ng/mL (30-100)
[2020-09-18 09:19] VITALS: BP 120/77
[2020-09-18 11:16] VITALS: BP 118/68
[2020-09-18 14:11] VITALS: BP 135/83
[2020-09-18] MEDS ORDERED: ZOFRAN4 MG PO (14:52)
[2020-09-18] MEDS ORDERED: CEFUROXIME AXE500 MG PO (14:52)
== END 2020-09-18 15:18 | disposition left against medical advice (07) | DRG 720 ==
LOC: ED 11:35 → EDHOLD 15:21
PROVIDERS: Physician Assistant; Student in an Organized Health Care Education/Training Program; ADMIT Family Medicine; ATTEND Family Medicine
DX: A41.9 Sepsis, unspecified organism (principal); N12 Tubulo-interstitial nephritis, not specified as acute or chronic; E43 Unspecified severe protein-calorie malnutrition; E87.1 Hypo-osmolality and hyponatremia; R74.8 Abnormal levels of other serum enzymes; R07.9 Chest pain, unspecified; J45.909 Unspecified asthma, uncomplicated; N18.30 Chronic kidney disease, stage 3 unspecified; E66.01 Morbid (severe) obesity due to excess calories; F12.90 Cannabis use, unspecified, uncomplicated; N17.0 Acute kidney failure with tubular necrosis; R65.20 Severe sepsis without septic shock; F32.9 Major depressive disorder, single episode, unspecified; N20.0 Calculus of kidney; I25.10 Atherosclerotic heart disease of native coronary artery without angina pectoris; E11.65 Type 2 diabetes mellitus with hyperglycemia; B96.89 Other specified bacterial agents as the cause of diseases classified elsewhere; E11.22 Type 2 diabetes mellitus with diabetic chronic kidney disease; Z53.29 Procedure and treatment not carried out because of patient's decision for other reasons; Z88.8 Allergy status to other drugs, medicaments and biological substances; Z88.6 Allergy status to analgesic agent; Z90.49 Acquired absence of other specified parts of digestive tract; Z95.5 Presence of coronary angioplasty implant and graft; Z87.442 Personal history of urinary calculi; Z82.49 Family history of ischemic heart disease and other diseases of the circulatory system; I25.2 Old myocardial infarction; Z86.718 Personal history of other venous thrombosis and embolism; Z86.711 Personal history of pulmonary embolism; Z79.899 Other long term (current) drug therapy; Z79.82 Long term (current) use of aspirin

== ENCOUNTER 2020-10-02 20:50 | Inpatient (IN) | payer OTHER ==
[~2020-10-02] VITALS: Ht 167.6 cm; Wt 118.6 kg
[~2020-10-02 20:50] MED LIST changes: +CEFUROXIME AXE500 MG PO; +PROZAC40 M1 PO; +ZOFRAN4 MG PO
[2020-10-02 20:55] VITALS: BP 168/80
[2020-10-02 21:16] LABS: BASO % 0.2 % (0.0-1.0); EOS # 0.1 10*3/uL (0.0-0.4); EOS % 0.9 % (1.0-4.0); HEMATOCRIT 37.1 % (37.0-47.0); LYMPH # 1.3 10*3/uL (1.3-4.4); LYMPH % 9.6 % (27.0-41.0); MEAN CELL VOLUME 88.5 fl (81.0-99.0); MEAN CORPUSCULAR HGB 27.4 pg (27.0-31.0); MEAN PLATELET VOLUME 10.9 fl (9.6-12.3); MONO # 0.5 10*3/uL (0.1-1.0); MONO % 3.9 % (3.0-9.0); NEUT # 11.4 10*3/uL (2.3-7.9); PLATELET COUNT AUTOMATED 310 10*3/uL (130-400); RED BLOOD COUNT 4.19 10*6/uL (4.10-5.10); RED CELL DISTRI WIDTH 15.7 % (0-14.5); WHITE BLOOD COUNT 13.4 10*3/uL (4.8-10.8)
[2020-10-02 21:31] LABS: ALBUMIN 2.3 gm/dl (3.1-4.5); CREATININE 1.39 mg/dL (0.55-1.02); POTASSIUM 4.3 mmol/L (3.5-5.1); TOTAL PROTEIN 7.1 gm/dL (6.4-8.2)
[2020-10-02 21:37] VITALS: BP 160/78
[2020-10-02 22:18] LABS: BILIRUBIN Negative (Negative); BLOOD 2+ (Negative); CLARITY Clear (Clear); COLOR Yellow (Yellow); GLUCOSE 3+ (Negative); KETONE Negative (Negative); LEUKO ESTERASE 1+ (Negative); NITRITE Negative (Negative); PH 6.5 (4.5-8.0); SPECIFIC GRAVITY 1.025 (1.001-1.030); UROBILINOGEN 0.2 E.U./dl (0.0-1.0)
[2020-10-02 22:48] LABS: BACTERIA 1+; RBC 31-40 rbc/hpf (0-2); WBC 21-30 wbc/hpf (0-5)
[2020-10-02 22:55] VITALS: BP 141/85
[2020-10-03 06:05] LABS: BUN 10 mg/dl (7-24); CHLORIDE 109 mmol/L (98-107); CREATININE 0.94 mg/dL (0.55-1.02); POTASSIUM 4.1 mmol/L (3.5-5.1); SODIUM 141 mmol/L (136-145)
[2020-10-03 06:15] LABS: BASO # 0.1 10*3/uL (0.0-0.1); BASO % 0.4 % (0.0-1.0); EOS # 0.2 10*3/uL (0.0-0.4); EOS % 1.1 % (1.0-4.0); LYMPH # 1.7 10*3/uL (1.3-4.4); LYMPH % 12.8 % (27.0-41.0); MEAN CELL VOLUME 89.5 fl (81.0-99.0); MEAN CORPUSCULAR HGB 27.4 pg (27.0-31.0); MEAN CORPUSCULAR HGB CONC 30.6 g/dl (33.0-37.0); MEAN PLATELET VOLUME 11.3 fl (9.6-12.3); MONO # 0.6 10*3/uL (0.1-1.0); MONO % 4.3 % (3.0-9.0); NEUT # 10.6 10*3/uL (2.3-7.9); NEUT % 80.9 % (47.0-73.0); PLATELET COUNT AUTOMATED 313 10*3/uL (130-400); RED BLOOD COUNT 3.91 10*6/uL (4.10-5.10); RED CELL DISTRI WIDTH 15.9 % (0-14.5); WHITE BLOOD COUNT 13.1 10*3/uL (4.8-10.8)
[2020-10-03 07:21] VITALS: BP 149/55; BP 149/555
[2020-10-03 08:00] VITALS: BP 139/78
[2020-10-03 08:45] VITALS: BP 139/78
[2020-10-03] MEDS ORDERED: NEURONTIN800 MG PO (10:17)
[2020-10-03] MEDS ORDERED: SEROQUEL50 MG PO (10:17)
[2020-10-03] MEDS ORDERED: GLUCOTROL10 MG PO (10:18)
[2020-10-03] MEDS ORDERED: LEVOTHYROXINE50 MCG PO (10:19)
[2020-10-03] MEDS ORDERED: KLONOPIN0.5 MG PO (10:20)
[2020-10-03] MEDS ORDERED: PROVENTIL HFA6.7 GM INH (10:20)
[2020-10-03] MEDS ORDERED: ZOFRAN4 MG PO (10:21)
[2020-10-03] MEDS ORDERED: SYMB160 INH (10:21)
[2020-10-03] MEDS ORDERED: MINIPRESS1 M1 PO (10:22)
[2020-10-03 12:00] VITALS: BP 152/95
[2020-10-03] MEDS ORDERED: MUCINEX D ER 61 EACH PO (12:07)
[2020-10-03 16:00] VITALS: BP 135/79
[2020-10-03 20:00] VITALS: BP 142/77
[2020-10-04] VITALS: BP 135/74
[2020-10-04 06:34] LABS: BASO # 0.1 10*3/uL (0.0-0.1); BASO % 0.4 % (0.0-1.0); EOS # 0.2 10*3/uL (0.0-0.4); EOS % 1.5 % (1.0-4.0); HEMATOCRIT 36.4 % (37.0-47.0); LYMPH # 1.7 10*3/uL (1.3-4.4); LYMPH % 14.8 % (27.0-41.0); MEAN CELL VOLUME 91.7 fl (81.0-99.0); MEAN CORPUSCULAR HGB 27.2 pg (27.0-31.0); MEAN CORPUSCULAR HGB CONC 29.7 g/dl (33.0-37.0); MEAN PLATELET VOLUME 10.6 fl (9.6-12.3); MONO # 0.6 10*3/uL (0.1-1.0); NEUT # 9.1 10*3/uL (2.3-7.9); PLATELET COUNT AUTOMATED 271 10*3/uL (130-400); RED BLOOD COUNT 3.97 10*6/uL (4.10-5.10); RED CELL DISTRI WIDTH 15.9 % (0-14.5); WHITE BLOOD COUNT 11.7 10*3/uL (4.8-10.8)
[2020-10-04 06:56] LABS: BUN 12 mg/dl (7-24); CHLORIDE 108 mmol/L (98-107); CREATININE 0.94 mg/dL (0.55-1.02); POTASSIUM 4.4 mmol/L (3.5-5.1); SODIUM 138 mmol/L (136-145)
[2020-10-04 08:13] VITALS: BP 131/81
[2020-10-04 12:29] VITALS: BP 116/65
[2020-10-04 16:24] VITALS: BP 141/84
[2020-10-04 20:00] VITALS: BP 143/89
[2020-10-05] VITALS: BP 132/77
[2020-10-05 08:00] VITALS: BP 132/79
[2020-10-05] MEDS ORDERED: MUCUS RELIEF600 MG PO (10:52)
[2020-10-05] MEDS ORDERED: HYDROCODONE-AC1 EAC1 PO (10:52)
[2020-10-05] MEDS ORDERED: LEVEMIR FL100 UNIT/1 SC (10:52)
[2020-10-05] MEDS ORDERED: HUMALOG100 UNIT/1 SQ (10:58)
[2020-10-05] MEDS ORDERED: AUGMENTIN 875-875 MG PO (11:03)
[2020-10-05] MEDS ORDERED: ZYVOX600 MG PO (11:09)
== END 2020-10-05 14:15 | disposition home or self-care (01) | DRG 720 ==
LOC: ED 20:50 → 5E 23:19 → EDHOLD 23:19 → 5E 10-03 07:12
PROVIDERS: Internal Medicine; Student in an Organized Health Care Education/Training Program; ADMIT Student in an Organized Health Care Education/Training Program; ATTEND Student in an Organized Health Care Education/Training Program
DX: A41.9 Sepsis, unspecified organism (principal); R65.20 Severe sepsis without septic shock; N39.0 Urinary tract infection, site not specified; N17.0 Acute kidney failure with tubular necrosis; D64.9 Anemia, unspecified; E43 Unspecified severe protein-calorie malnutrition; E87.8 Other disorders of electrolyte and fluid balance, not elsewhere classified; E87.1 Hypo-osmolality and hyponatremia; E11.65 Type 2 diabetes mellitus with hyperglycemia; E11.22 Type 2 diabetes mellitus with diabetic chronic kidney disease; J45.909 Unspecified asthma, uncomplicated; N18.30 Chronic kidney disease, stage 3 unspecified; E66.01 Morbid (severe) obesity due to excess calories; Z79.4 Long term (current) use of insulin; Z68.41 Body mass index [BMI] 40.0-44.9, adult; Z88.8 Allergy status to other drugs, medicaments and biological substances; Z88.6 Allergy status to analgesic agent; Z90.49 Acquired absence of other specified parts of digestive tract; Z95.5 Presence of coronary angioplasty implant and graft; Z87.442 Personal history of urinary calculi; Z82.49 Family history of ischemic heart disease and other diseases of the circulatory system; I25.2 Old myocardial infarction; Z86.718 Personal history of other venous thrombosis and embolism; Z86.711 Personal history of pulmonary embolism; Z79.899 Other long term (current) drug therapy; Z79.82 Long term (current) use of aspirin

== ENCOUNTER → 2021-05-03 | Outpatient (CLI) | payer OTHER ==
[~2021-05-03] MED LIST changes: +AUGMENTIN 875-875 MG PO; +GLUCOTROL10 MG PO; +HUMALOG100 UNIT/1 SQ; +HYDROCODONE-AC1 EAC1 PO; +KLONOPIN0.5 MG PO; +LEVEMIR FL100 UNIT/1 SC; +LEVOTHYROXINE50 MCG PO; +MINIPRESS1 M1 PO; +MUCINEX D ER 61 EACH PO; +MUCUS RELIEF600 MG PO; +NEURONTIN800 MG PO; +PROVENTIL HFA6.7 GM INH; +SEROQUEL50 MG PO; +SYMB160 INH; +ZYVOX600 MG PO
== END ==
LOC: COVID19 16:29
PROVIDERS: ATTEND Family Medicine
DX: Z11.52 Encounter for screening for COVID-19 (principal); Z20.822 Contact with and (suspected) exposure to COVID-19

== ENCOUNTER 2023-03-23 13:22 | Emergency (ER) | payer OTHER ==
[~2023-03-23] VITALS: Wt 119.0 kg
[2023-03-23 13:58] LABS: BASO % 0.4 % (0.0-1.0); EOS # 0.1 10*3/uL (0.0-0.4); EOS % 1.4 % (1.0-4.0); HEMATOCRIT 38.6 % (37.0-47.0); LYMPH # 1.6 10*3/uL (1.3-4.4); LYMPH % 16.4 % (27.0-41.0); MEAN CELL VOLUME 95.3 fl (81.0-99.0); MEAN CORPUSCULAR HGB 31.6 pg (27.0-31.0); MEAN CORPUSCULAR HGB CONC 33.2 g/dl (33.0-37.0); MONO # 0.5 10*3/uL (0.1-1.0); MONO % 5.1 % (3.0-9.0); NEUT # 7.4 10*3/uL (2.3-7.9); NEUT % 76.3 % (47.0-73.0); PLATELET COUNT AUTOMATED 245 10*3/uL (130-400); RED BLOOD COUNT 4.05 10*6/uL (4.10-5.10); RED CELL DISTRI WIDTH 13.9 % (0-14.5); WHITE BLOOD COUNT 9.7 10*3/uL (4.8-10.8)
[2023-03-23 14:08] LABS: ACT PARTIAL THROMBO TIME 25.9 SECONDS (20.0-32.1)
[2023-03-23 14:15] LABS: ALKALINE PHOSPHATASE 83 U/L (46-116); BUN 17 mg/dl (9-23); CHLORIDE 109 mmol/L (98-107); CPK 121 U/L (34-171); SGPT/ALT < 7 U/L (5-49); TOTAL PROTEIN 6.3 gm/dL (6.0-8.0)
[2023-03-23 14:23] LABS: B-hCG (QUALITATIVE) NEGATIVE (NEGATIVE)
[2023-03-23 14:40] LABS: BILIRUBIN Negative (Negative); BLOOD Trace-Lysed (Negative); CLARITY Clear (Clear); COLOR Yellow (Yellow); GLUCOSE Trace (Negative); KETONE Negative (Negative); LEUKO ESTERASE Negative (Negative); NITRITE Negative (Negative); UROBILINOGEN 0.2 E.U./dl (0.0-1.0)
[2023-03-23 14:47] LABS: URINE AMPHETAMINES Negative (1000ng/ml); URINE BARBITURATES Negative (200ng/ml); URINE BENZODIAZEPINES Negative (200ng/ml); URINE CANNABINOIDS (THC) Positive (50ng/ml); URINE COCAINE Negative (300ng/ml); URINE METHADONE Negative (300ng/ml); URINE OPIATES Negative (300ng/ml); URINE PHENCYCLIDINE Negative (25ng/ml)
[2023-03-23 15:17] LABS: BACTERIA 1+; EPITHELIAL CELLS 0-2; WBC 0-2 wbc/hpf (0-5)
[2023-03-23] MEDS ORDERED: MELOXICAM15 MG PO (16:23)
[2023-03-23] MEDS ORDERED: BENZONATATE100 M1 PO (16:25)
[2023-03-23] MEDS ORDERED: Clopidogrel75 MG PO (16:26)
== END 2023-03-23 16:10 | disposition short-term general hospital (02) ==
LOC: ED 13:22
PROVIDERS: Family Medicine
DX: I63.9 Cerebral infarction, unspecified (principal); I25.10 Atherosclerotic heart disease of native coronary artery without angina pectoris; E78.00 Pure hypercholesterolemia, unspecified; E11.40 Type 2 diabetes mellitus with diabetic neuropathy, unspecified; E11.65 Type 2 diabetes mellitus with hyperglycemia; Z79.4 Long term (current) use of insulin; Z88.8 Allergy status to other drugs, medicaments and biological substances; Z88.6 Allergy status to analgesic agent; Z90.49 Acquired absence of other specified parts of digestive tract; Z98.890 Other specified postprocedural states; Z95.5 Presence of coronary angioplasty implant and graft; F12.90 Cannabis use, unspecified, uncomplicated; Z86.718 Personal history of other venous thrombosis and embolism; Z79.899 Other long term (current) drug therapy